=== PATIENT | male | born 1990 | race Hispanic/Latino ===

== ENCOUNTER 2020-04-20 14:32 | Emergency (ER) | payer SELFPAY ==
[2020-04-20] MEDS ORDERED: SODIUM CHLORIDE 0.9% (FLUSH) 10 ML SYG IV PRN (14:49)
--- NOTE | 2020-04-20 14:58 | ED.PDOC ---
History of Present Illness - General Chief Complaint: Abdominal Pain Stated Complaint: LLQ abdominal,Left groin pain Time Seen by Provider: 04/20/20 14:49 Source: patient - History of Present Illness Initial Comments: 29-year-old male who presents with chief complaint of left testicular pain. Reports onset about 2 weeks ago with gradual worsening. Pain has worsened even further in the past 2 days. Currently describes as a constant 8/10 severity sharp/throbbing pain to the left testicular region which radiates into the left groin, constant, worse with palpation, no medication taken for relief. He additionally reports some swelling and redness to the area. He also reports new onset of yellow penile discharge for the past couple of days. He does report that he is sexually active and is worried about sexually transmitted infections. Denies any fevers, chills, chest pain, shortness of breath, sore throat, headaches, body aches. Reports some nausea but no emesis. Denies any acute injuries to the area. No history of similar symptoms in the past. Allergies/Adverse Reactions: Allergies NO KNOWN ALLERGY Allergy (Unverified 04/22/12 21:53) Home Medications: Ambulatory Orders NK 04/20/20 Family Medical History - Family History Father Family History: Unknown Living Status: Unknown Physical Exam - Physical Exam General Appearance: Alert, Comfortable, No apparent distress Eye Exam: bilateral normal Ears, Nose, Throat: hearing grossly normal, normal ENT inspection, normal pharynx Neck: non-tender, full range of motion, supple, normal inspection Respiratory: lungs clear, normal breath sounds, no respiratory distress, no accessory muscle use Cardiovascular/Chest: normal peripheral pulses, regular rate, rhythm, no edema, no gallop, no JVD, no murmur Peripheral Pulses: radial,right: 2+, radial,left: 2+ Gastrointestinal/Abdominal: soft, no organomegaly, no pulsatile mass, tenderness - moderate to LLQ w/o guarding or rebound, no masses palpable, other - Left testicle approx 5x3 cm in size compared to ~4x2 in size on Right side. Left testicle with erythema, warmth, and marked ttp as well. Normal lie, cremasteric reflex seems present. Back Exam: normal inspection, no CVA tenderness, no vertebral tenderness Extremity: normal range of motion, non-tender, normal inspection, no pedal edema, no calf tenderness, normal capillary refill Neurologic: barrel header II-XII nml as tested, no motor/sensory deficits, alert, normal mood/affect, oriented x 3 Skin Exam: normal color, warm/dry Progress - Progress Progress: 04/20/20 15:45 Acute left testicular pain -along with penile discharge in sexually active young male - most likely epididymo-orchitis from GC/Chlamydia infection. Consider also testicular torsion, UTI, hydrocele, varicocele, sepsis, etc... -obtain bloodwork, UA, culture penile discharge for GC/Chlamydia -place PIV, 1 L NS bolus, Toradol 30 mg IV, Zofran 4 mg IV, morphine 4 mg IV 04/20/20 17:26 -Labwork reveals leukocytosis of 26,000 with left shift and 7 bands, lactate 1.2. Blood cx's drawn x2. Concern for epididymo-orchitis - pt will need inpatient admission for IV Abx and trending of WBC. Spoke with hospitalist, Zaida Melchor, who requests that the pt be transferred for stat US imaging of the testicles to rule out torsion. Thus, spoke with Dr. Zendejas, ED physician at [facility] who accepts pt for ED to ED transfer. Stable to go via ground EMS. -Begin empiric IV Abx with Levaquin 750 mg IV & Doxycycline 100 mg PO -Pain well-controlled, pt remains stable. Shen Burns MD Billing #[id number] 04/20/20 14:49 Sodium Chloride 0.9% (Flush) [Saline Flush Syringe] 10 ml IV PRN PRN URINALYSIS Stat 04/20/20 15:28 GC CHLAMYDIA RNA,TMA Stat 04/20/20 16:10 BLOOD CULTURE Stat Laboratory Results - last 24 hr 04/20/20 04/20/20 04/20/20 15:07 15:07 15:07 WBC 26.1 H* RBC 5.50 Hgb 14.9 Hct 44.5 MCV 80.9 MCH 27.0 MCHC 33.4 RDW 13.8 Plt Count 201 MPV 10.0 Absolute Neuts (auto) Not Reportable Absolute Lymphs (auto) Not Reportable Absolute Monos (auto) Not Reportable Absolute Eos (auto) Not Reportable Neutrophils % Not Reportable Neutrophils % (Manual) 80.0 H Lymphocytes % Not Reportable Lymphocytes % (Manual) 7.0 Monocytes % Not Reportable Monocytes % (Manual) 5.0 Eosinophils % Not Reportable Basophils % Not Reportable Band Neutrophils 7.0 H Eosinophils 0.0 Basophils 1.0 Platelet Estimate Normal Normal RBC Morphology Normal rbc morph Sodium 133 L Potassium 4.1 Chloride 99 L Carbon Dioxide 23 Anion Gap 15.1 BUN 10 Creatinine 0.84 BUN/Creatinine Ratio 11.9 Random Glucose 123 H Serum Osmolality 266.8 L Lactic Acid Calcium 8.8 Total Bilirubin 1.2 H Direct Bilirubin 0.3 H Indirect Bilirubin 0.9 H AST 19 ALT 11 Alkaline Phosphatase 94 Serum Total Protein 7.7 Albumin 4.2 Lipase 19 L 04/20/20 15:07 WBC RBC Hgb Hct MCV MCH MCHC RDW Plt Count MPV Absolute Neuts (auto) Absolute Lymphs (auto) Absolute Monos (auto) Absolute Eos (auto) Neutrophils % Neutrophils % (Manual) Lymphocytes % Lymphocytes % (Manual) Monocytes % Monocytes % (Manual) Eosinophils % Basophils % Band Neutrophils Eosinophils Basophils Platelet Estimate Normal RBC Morphology Sodium Potassium Chloride Carbon Dioxide Anion Gap BUN Creatinine BUN/Creatinine Ratio Random Glucose Serum Osmolality Lactic Acid 1.2 Calcium Total Bilirubin Direct Bilirubin Indirect Bilirubin AST ALT Alkaline Phosphatase Serum Total Protein Albumin Lipase Departure - Departure Clinical Impression: Orchitis and epididymitis, Testicular pain, left Time of Disposition: 17:30 Disposition: Transfer to Hospital Condition: Fair Departure Forms: ED Discharge - Pt. Copy, Patient Portal Self Enrollment Instructions: DI for Abdominal Pain-Adult Diet: other - NPO until cleared by doctor Home Medications: Ambulatory Orders NK 04/20/20 Transfer to Outside Facility - Transfer Information Decision to Transfer Date: 04/20/20 Decision to Transfer Time: 17:30 Reason for Transfer: required specialist not available - urology, stat ultrasound imaging Accepting Provider:: Dr. Zendejas Accepting Facility: [facility]
[2020-04-20] MEDS ORDERED: ONDANSETRON INJ 4 MG/2 ML VIAL IV ONE (15:01)
[2020-04-20] MEDS ORDERED: SODIUM CHLORIDE 0.9% 1000ML 1,000 ML IVS ONE (15:01)
[2020-04-20] MEDS ORDERED: KETOROLAC TROMETHAMINE INJ 30 MG/ML VIAL IV ONE (15:01)
--- NOTE | 2020-04-20 15:26 | RAD ---
EXAM DESCRIPTION: Abdomen 1 View CLINICAL HISTORY: 29 years Male LLQ abdominal pain COMPARISON: None TECHNIQUE: Two view study of the abdomen was obtained. FINDINGS: Gas is seen throughout the bowel. The bowel is normal in caliber. No significant constipation. No abnormal calcifications. No intraperitoneal free air. IMPRESSION: Nonspecific bowel gas pattern. No bowel obstruction or perforation. Electronically signed by: Bee Robledo MD 04/20/2020 3:25 PM [facility]
[2020-04-20] MEDS ORDERED: levoFLOXacin 750MG IV 750 MG in PREMIX BAG 1 BAG IVPB ONE (15:50)
[2020-04-20] MEDS ORDERED: MORPHINE SULFATE INJ 10 MG/ML VIAL IV ONE (17:17)
[2020-04-20] MEDS ORDERED: DOXYCYCLINE HYCLATE CAP 100 MG CAP PO ONE (17:21)
[2020-04-20 18:16] VITALS: BP 156/73; TEMP 98.5; O2SAT 98
== END 2020-04-20 18:16 | disposition short-term general hospital (02) ==
LOC: ER 14:32
DX: N45.3 Epididymo-orchitis (principal); R11.0 Nausea; Z20.822 Contact with and (suspected) exposure to COVID-19
CPT/HCPCS: 36415; 74018; 80048; 80076; 83605; 83690; 85025; 87040; 87491; 87502; 87591; 87635; J1885; J1956; J2270; J2405; J7030